=== PATIENT | female | born 1960 | race Caucasian/White ===

== ENCOUNTER → 2017-02-14 | Outpatient (CLI) | payer BC ==
[~2017-02-14] MED LIST: ADVIN25050 INH; ALBU1AER9 INH; ARIP2TAB3 PO; ATV1 PO; CITA40TA4 PO; DSY50 PO; MONT1TAB3 PO; MULT-506 PO; OMEP20CA59 PO
--- NOTE | 2017-02-18 16:34 | MAMMOGRAPHY REPORT ---
THIS REPORT HAS BEEN AMENDED. AMENDMENT: 02/20/2017 Amy Hess M.D. Prior outside mammograms from [facility] dated 11/24/2012, 02/17/2014, 1 became available for review. There has been no significant interval change comparing to t hese more recent prior outside exams. No new suspicious mass, architectural distortion or suspiciou s microcalcifications are seen. Recommend follow-up in 1 year for next annual screening exam. Amended BI-RADS: ACR BI-RADS Category 1: Negative letter sent: Normal 1/2 BILATERAL DIGITAL SCREENING MAMMOGRAM TOMOSYNTHESIS WITH CAD: 02/14/2017 CLINICAL HISTORY: Routine screening. Patient has no complaints. TECHNIQUE: Breast tomosynthesis in addition to standard 2D mammography was performed. Current study was also evaluated with a Computer Aided Detection (CAD) system. COMPARISON: Comparison is made to exam dated: 02/26/2003 mammogram - [facility]. BREAST COMPOSITION: There are scattered areas of fibroglandular density in both breasts. FINDINGS: There have been involutional changes comparing to the prior available mammograms dated . No new suspicious mass, architectural distortion or cluster of microcalcifications is seen . IMPRESSION: ACR BI-RADS CATEGORY 1: NEGATIVE There is no mammographic evidence of malignancy. A 1 year screening mammogram is recommended. The p atient will receive written notification of the results. Approximately 10% of breast cancers are not detected with mammography. A negative mammographic repor t should not delay biopsy if a clinically suggestive mass is present. Amy Hess M.D. ay/:02/18/2017 16:29:44 Tool Room Lathe Operator: Emily HARO)(M), [facility] letter sent: Normal 1/2 BI-RADS Code: ACR BI-RADS Category 1: Negative
== END | disposition home or self-care (01) ==
LOC: C.MAMM 13:42
PROVIDERS: ATTEND Family Medicine
DX: Z12.31 Encounter for screening mammogram for malignant neoplasm of breast (principal)

== ENCOUNTER → 2017-12-03 | Outpatient (CLI) | payer BC ==
[~2017-12-03] MED LIST changes: +OPTIRAY 320 IV PRN
--- NOTE | 2017-12-03 07:34 | DIAGNOSTIC IMAGING REPORT ---
CT OF THE CHEST WITH IV CONTRAST CLINICAL HISTORY: SOLITARY PULMONARY NODULE COMPARISON STUDY: June 10, 2012 TECHNIQUE: Following the IV administration of 93 mL of Optiray-320, CT of the thorax was performed from the thoracic inlet to the lung bases. Images are reviewed in the axial, sagittal, and coronal planes. IV contrast was administered without complication. A dose lowering technique was utilized adhering to the principles of ALARA. CT DOSE: 320.21 mGy.cm FINDINGS: Thyroid: Imaged portions of the thyroid gland are normal in appearance. Thoracic aorta: The thoracic aorta is normal in course and caliber, noting standard 3-vessel arch anatomy. No aneurysm or dissection is seen. Pulmonary vasculature: The pulmonary trunk is normal in caliber. There are no central filling defects identified to suggest pulmonary embolus. Note that this examination was not protocoled for the evaluation of pulmonary emboli. HEART: The heart is normal in size and configuration, without pericardial effusion. Lungs and pleural spaces: There is a 3 mm pleural-based solid right upper lobe pulmonary nodule as visualized in image #[id number]. This remain similar to the prior study. There is a stable 4 mm mixed solid and groundglass left upper lobe pulmonary nodule as visualized in image #101/[id number]. Mediastinum: There is no pathologic adenopathy. 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 Eliza: There is no pathologic hilar adenopathy Axilla: Clear. Upper abdomen: Partially visualized upper abdominal viscera is within normal limits. Skeletal structures: There are no lytic or blastic osseous lesions. IMPRESSION: 1. 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 Stable 3 mm right upper lobe and stable 4 mm left upper lobe pulmonary nodule Electronically signed by: Rogers Marks M.D. 12/03/2017 7:32 AM Dictated Date/Time: 12/03/2017 7:25 AM
== END | disposition home or self-care (01) ==
LOC: C.CTS 07:00
PROVIDERS: ATTEND Family Medicine
DX: R91.1 Solitary pulmonary nodule (principal)